=== PATIENT | female | born 1945 | race Caucasian/White ===

== ENCOUNTER 2020-01-09 12:03 | Emergency (ER) | payer MEDICARE, SELFPAY ==
[2020-01-09 12:20] VITALS: BP 141/71; PULSE 91; RESP 21; TEMP 36.3; O2SAT 98
--- NOTE | 2020-01-09 12:45 | ED.URI ---
HPI - URI/Sore Throat General Chief Complaint: Upper Respiratory Infection Stated Complaint: sinus infection Time Seen by Provider: 01/09/20 12:34 Source: patient and RN notes reviewed Mode of arrival: ambulatory Limitations: no limitations History of Present Illness HPI Narrative: Patient presents today complaining of congestion, rhinorrhea, frontal headache and facial pain, right ear pain since yesterday. Denies sore throat, fever, cough. Reports clear nasal drainage. She takes Claritin and Singulair for her seasonal allergies and allergy to mold. She took a one-time dose of a decongestant yesterday without relief. She used a Neti pot this morning without relief. History of diabetes and deviated septum repair. MD elicited complaint: nasal congestion and sinus pain Related Data Home Medications Medication Instructions Recorded Confirmed atorvastatin 20 mg PO DAILY 01/09/20 01/09/20 buspirone 30 mg PO DAILY 01/09/20 01/09/20 citalopram 40 mg PO DAILY 01/09/20 01/09/20 famotidine 40 mg PO DAILY 01/09/20 01/09/20 furosemide 40 mg PO DAILY 01/09/20 01/09/20 loratadine 10 mg PO DAILY 01/09/20 01/09/20 metformin 500 mg PO DAILY 01/09/20 01/09/20 montelukast 10 mg PO DAILY 01/09/20 01/09/20 spironolactone 50 mg PO DAILY 01/09/20 01/09/20 tizanidine 2 mg PO DIRECTED 01/09/20 01/09/20 Allergies Allergy/AdvReac Type Severity Reaction Status Date / Time Penicillins Allergy Unknown Unknown Verified 01/09/20 12:23 Sulfa (Sulfonamide Allergy Unknown UNKNOWN Verified 01/09/20 12:23 Antibiotics) sulfanilamide Allergy Unknown Unknown Verified 01/09/20 12:23 Review of Systems Review of Systems: Narrative: CONSTITUTIONAL: Denies body aches, fever, chills, or sweats. EYES: Denies visual changes, redness, or discharge. ENT: Denies sore throat. + Congestion, rhinorrhea, right ear pain, facial pain CARDIOVASCULAR: Denies chest pain, palpitations, or edema. RESPIRATORY: Denies cough or dyspnea. GASTROINTESTINAL: Denies abdominal pain, nausea, vomiting, or diarrhea. GENITOURINARY: Denies dysuria or hematuria. SKIN: Denies rash, itching, or wounds. MUSCULOSKELETAL: Denies back pain, joint pain, or myalgia. NEUROLOGIC: Denies headache, numbness, tingling, or weakness. PSYCH: Denies depression or anxiety. [facility] Past Medical History Medical History (Updated 01/09/20 @ 12:49 by Kalyn Han, [facility], ) Depression Diabetes Hypercholesterolemia Seasonal allergies Surgical History Surgical History (Updated 01/09/20 @ 12:47 by Kalyn Han, [facility], ) History of bilateral knee replacement History of cholecystectomy Family History Family History (Updated 09/16/12 @ 16:04 by DOCTOR UNKNOWN) Other Diabetes mellitus Family history of cardiovascular disease Social History Social History Smoking status: Never smoker Alcohol intake: current Comments At time of signature, I have reviewed and agree with nursing past medical, surgical, social and family history unless otherwise noted. Please see nursing chart for further information. There is no relevant family history pertinent to the presenting complaint Exam Narrative: Exam Narrative: GENERAL: Well-appearing, well-nourished, and in no acute distress. HEAD: Normocephalic, atraumatic. EYES: EOMI. No redness or drainage. Conjunctivae normal. ENT: Mucous membranes pink and moist. Nares congested. +rhinorrhea. Bilateral swollen nasal turbinates without erythema. Bilateral middle ear effusions without evidence of infection. Throat normal. Uvula midline. NECK: Normal AROM. Supple. No lymphadenopathy. CHEST: No respiratory distress. Clear to auscultation. HEART: Regular rate and rhythm. No murmur appreciated. Normal peripheral pulses. EXTREMITIES: Normal range of motion. No edema. SKIN: Warm, dry, no rash. Capillary refill normal. Normal skin turgor. NEURO: No focal deficits. Alert and oriented x3. Gait steady. PSYCH: Normal affect. No signs of depr
== END 2020-01-09 12:51 | disposition home or self-care (01) ==
PROVIDERS: Emergency Provider Nurse Practitioner; PCP Internal Medicine
DX: J30.9 Allergic rhinitis, unspecified (principal); E11.9 Type 2 diabetes mellitus without complications; Z79.84 Long term (current) use of oral hypoglycemic drugs
CPT/HCPCS: 99203; G0463

== ENCOUNTER 2020-07-04 10:15 | Outpatient (CLI) | payer MEDICARE, SELFPAY ==
[2020-07-04 10:28] LABS: Basophils Absolute Auto 0.1 K/mm3 (0.0-0.1); Basophils Percent Auto 0.8 % (0.2-1.2); Eosinophils Absolute Auto 0.3 K/mm3 (0-0.3); Eosinophils Percent Auto 3.3 % (0-4.4); Hematocrit 42.1 % (37.0-47.0); Hemoglobin 13.4 g/dL (12.0-15.0); Immature Granulocyte Absolute 0.04 K/mm3 (0.00-0.031); Immature Granulocyte Percent A 0.5 % (0-0.5); Lymphocytes Absolute Auto 0.73 K/mm3 (0.9-3.2); Lymphocytes Percent Auto 8.3 % (18.3-44.2); Mean Corpuscular HGB Conc 31.8 g/dl (32-36); Mean Corpuscular Hemoglobin 29.1 pg (26-34); Mean Corpuscular Volume 91.3 fl (80-100); Mean Platelet Volume 9.9 fl (7.4-10.4); Monocytes Absolute Auto 0.8 K/mm3 (0.1-0.6); Monocytes Percent Auto 9.2 % (2.6-8.5); Neutrophils Absolute Auto 6.9 K/mm3 (1.3-6.7); Neutrophils Percent Auto 77.9 % (45.5-73.1); Platelet Count Result 252 k/mm3 (150-375); Red Blood Count 4.61 M/mm3 (4.2-5.4); Red Cell Distribution Width 14.5 % (11.5-14.5); White Blood Count 8.8 K/mm3 (4.5-10.0)
[2020-07-04 10:32] LABS: Blood Urea Nitrogen 17 mg/dL (8-26); Carbon Dioxide 33 mmol/L (22-30); Chloride 98 mmol/L (98-109); Estimated Glomerular Filt Rate 40; Glucose 109 mg/dL (70-105); Potassium 3.8 mmol/L (3.5-4.9); Sodium 139 mmol/L (138-146)
[2020-07-04 12:30] LABS: Alanine Aminotransferase 26 U/L (4-35); Albumin Level 4.2 g/dL (3.5-5.1); Alkaline Phosphatase 161 U/L (38-126); Anion Gap 7 mmol/L (8-16); Aspartate Amino Transferase 33 U/L (14-36); Bilirubin,Total 0.5 mg/dL (0.2-1.3); Blood Urea Nitrogen 17 mg/dL (7-17); Calcium 9.3 mg/dL (8.4-10.2); Carbon Dioxide 33 mmol/L (22-30); Chloride 99 mmol/L (98-107); Estimated Glomerular Filt Rate 44; Glucose 111 mg/dL (65-105); Potassium 4.1 mmol/L (3.4-5.0); Sodium 139 mmol/L (137-145)
== END 2020-07-04 10:16 | disposition home or self-care (01) ==
LOC: ANHLAB 10:17
PROVIDERS: PCP Internal Medicine; Visit Provider Internal Medicine Hematology & Oncology
DX: D05.12 Intraductal carcinoma in situ of left breast (principal)
CPT/HCPCS: 36415; 80048; 80053; 85025

== ENCOUNTER 2020-08-31 13:03 | Emergency (ER) | payer MEDICARE, SELFPAY ==
--- NOTE | 2020-08-31 13:23 | ED.URI ---
HPI - URI/Sore Throat General Chief Complaint: Upper Respiratory Infection Stated Complaint: URI Time Seen by Provider: 08/31/20 13:23 Source: patient and RN notes reviewed History of Present Illness HPI Narrative: Patient is a 74-year-old female who presents the urgent care with complaints of a sinus infection . Patient states that she has had the sinus infection for approximately 1 week with sneezing, mild nonproductive cough, and drainage. Patient states that she has had no exposure to Covid. She has received her first dose of the vaccine. States that she has been taking Daphne and Singulair. Denies of any fever, chills, nausea, vomiting, shortness of breath. No other acute complaints. No acute distress noted. Patient aware of the plan of care. Related Data Home Medications Medication Instructions Recorded Confirmed atorvastatin 20 mg PO DAILY 01/09/20 08/31/20 buspirone 30 mg PO DAILY 01/09/20 08/31/20 citalopram 40 mg PO DAILY 01/09/20 08/31/20 famotidine 40 mg PO DAILY 01/09/20 08/31/20 furosemide 40 mg PO DAILY 01/09/20 08/31/20 loratadine 10 mg PO DAILY 01/09/20 08/31/20 montelukast 10 mg PO DAILY 01/09/20 08/31/20 spironolactone 50 mg PO DAILY 01/09/20 08/31/20 aspirin [Adult Low Dose Aspirin] 81 mg PO DAILY 05/16/20 08/31/20 ergocalciferol (vitamin D2) 10 mcg PO DAILY 05/16/20 08/31/20 [Vitamin D2] ezetimibe [Zetia] 10 mg PO DAILY 05/16/20 08/31/20 magnesium 15 mg PO DAILY 05/16/20 08/31/20 [id number]-lhk-SK-lycopen-lutein 1 tablet PO DAILY 05/16/20 08/31/20 [Centrum Silver] tramadol 40 mg PO Q6H PRN 05/16/20 08/31/20 zinc 10 mg PO DAILY 06/06/20 08/31/20 anastrozole 1 mg PO DAILY 08/19/20 08/31/20 levothyroxine 25 mcg PO DAILY 08/19/20 08/31/20 Allergies Allergy/AdvReac Type Severity Reaction Status Date / Time Penicillins Allergy Unknown Unknown Verified 08/31/20 13:32 Sulfa (Sulfonamide Allergy Unknown UNKNOWN Verified 08/31/20 13:32 Antibiotics) sulfanilamide Allergy Unknown Unknown Verified 08/31/20 13:32 Review of Systems Review of Systems: Narrative: CONSTITUTIONAL: Denies fever, chills, or sweats. EYES: Denies visual changes, redness, or discharge. ENT: Reports of sneezing, sinus congestion, postnasal drainage CARDIOVASCULAR: Denies chest pain, palpitations, or edema. RESPIRATORY: Reports of nonproductive cough without dyspnea GASTROINTESTINAL: Denies abdominal pain, nausea, vomiting, or diarrhea. GENITOURINARY: Denies dysuria or hematuria. SKIN: Denies rash or itching. MUSCULOSKELETAL: Denies back pain, joint pain, or myalgia. NEUROLOGIC: Reports of headache All other systems reviewed are negative, except as documented in HPI. [facility] Past Medical History Medical History (Updated 08/31/20 @ 13:40 by RICO Jensen) Breast cancer Diagnosed 03/24/2020 Depression Diabetes Hypercholesterolemia Seasonal allergies Surgical History Surgical History (Updated 06/06/20 @ 13:09 by Elda Wong MD) History of bilateral knee replacement History of cholecystectomy Family History Family History (Updated 09/16/12 @ 16:04 by DOCTOR UNKNOWN) Other Diabetes mellitus Family history of cardiovascular disease Social History Social History Years smoked: 10 Smoking status: Former smoker Tobacco type: cigarettes Additional smoking assessment comments: less than 1/2 pack per day Alcohol intake: current Spiritual care concerns: No Comments At the time of my signature, I reviewed and agree with the nursing past medical, surgical, social, and family history. There is no relevant family history pertinent to the patient complaint. Exam Narrative: Exam Narrative: GENERAL: This is a well-nourished, well-developed patient, in no apparent distress. HEAD: normocephalic, atraumatic. EYES: PERRL. Sclera clear/white. Vision is grossly intact. EARS: External ears normal, auditory canals clear and without drainage, mild fluid noted behind bilateral TMs without yeni
[2020-08-31 13:30] VITALS: BP 108/78; PULSE 95; RESP 20; TEMP 36.6; O2SAT 95
== END 2020-08-31 13:45 | disposition home or self-care (01) ==
PROVIDERS: Emergency Provider Nurse Practitioner Family; PCP Internal Medicine
DX: J32.9 Chronic sinusitis, unspecified (principal); Z87.891 Personal history of nicotine dependence; F32.9 Major depressive disorder, single episode, unspecified; E11.9 Type 2 diabetes mellitus without complications; E78.00 Pure hypercholesterolemia, unspecified; Z85.3 Personal history of malignant neoplasm of breast
CPT/HCPCS: 99213; G0463

== ENCOUNTER 2020-09-26 14:12 | Outpatient (CLI) | payer MEDICARE, SELFPAY ==
[2020-09-26 14:27] LABS: Basophils Percent Auto 0.4 % (0.2-1.2); Eosinophils Absolute Auto 0.3 K/mm3 (0-0.3); Eosinophils Percent Auto 2.5 % (0-4.4); Hematocrit 38.9 % (37.0-47.0); Hemoglobin 12.6 g/dL (12.0-15.0); Immature Granulocyte Absolute 0.06 K/mm3 (0.00-0.031); Immature Granulocyte Percent A 0.6 % (0-0.5); Mean Corpuscular HGB Conc 32.4 g/dl (32-36); Mean Corpuscular Volume 92.6 fl (80-100); Mean Platelet Volume 9.9 fl (7.4-10.4); Monocytes Absolute Auto 0.7 K/mm3 (0.1-0.6); Monocytes Percent Auto 7.3 % (2.6-8.5); Neutrophils Percent Auto 80.2 % (45.5-73.1); Platelet Count Result 264 k/mm3 (150-375); Red Cell Distribution Width 13.8 % (11.5-14.5)
[2020-09-26 14:31] LABS: Blood Urea Nitrogen 26 mg/dL (8-26); Carbon Dioxide 29 mmol/L (22-30); Chloride 101 mmol/L (98-109); Estimated Glomerular Filt Rate 37; Glucose 151 mg/dL (70-105); Potassium 3.7 mmol/L (3.5-4.9); Sodium 140 mmol/L (138-146)
[2020-09-26 16:36] LABS: Alanine Aminotransferase 19 U/L (4-35); Albumin Level 4.2 g/dL (3.5-5.1); Alkaline Phosphatase 148 U/L (38-126); Anion Gap 10 mmol/L (8-16); Aspartate Amino Transferase 25 U/L (14-36); Bilirubin,Total 0.3 mg/dL (0.2-1.3); Blood Urea Nitrogen 25 mg/dL (7-17); Calcium 9.3 mg/dL (8.4-10.2); Carbon Dioxide 29 mmol/L (22-30); Chloride 101 mmol/L (98-107); Estimated Glomerular Filt Rate 44; Glucose 149 mg/dL (65-105); Sodium 140 mmol/L (137-145)
== END 2020-09-26 14:13 | disposition home or self-care (01) ==
LOC: ANHLAB 14:14
PROVIDERS: PCP Internal Medicine; Visit Provider Internal Medicine Hematology & Oncology
DX: D05.12 Intraductal carcinoma in situ of left breast (principal)
CPT/HCPCS: 36415; 80048; 80053; 85025